=== PATIENT | male | born 1980 | race Caucasian/White ===

== ENCOUNTER → 2016-07-13 | Outpatient (CLI) | payer OTHER | END | disposition home or self-care (01) | LOC: CDC 10:03 | DX: Z01.810 Encounter for preprocedural cardiovascular examination (principal); M25.512 Pain in left shoulder; S43.432D Superior glenoid labrum lesion of left shoulder, subsequent encounter; I10 Essential (primary) hypertension | CPT/HCPCS: 93000 ==